=== PATIENT | female | born 1955 | race Two or more races ===

== ENCOUNTER → 2018-12-12 | Outpatient (REF) | payer OTHER ==
[~2018-12-12] MED LIST: DIOVAN160 MG PO; FISH OIL1000 M1 OR; LOSARTAN POT50 MG PO; LOSARTAN POTAS100 MG OR; METO25TAB PO; METOPROL TAR25 MG PO; MULTI VIT OR; NORVASC10 M1 OR; NORVASC10 M1 PO; SIMVASTATIN40 MG PO; TOPROL XL25 M1 PO; ZOCOR20 MG PO
[2018-12-12 10:49] LABS: HEMATOCRIT 40.9 % (37.0-47.0); HEMOGLOBIN 13.1 g/dl (12.0-16.0); IMMATURE GRANULOCYTES 0.3 % (0.0-5.0); MEAN CELL VOLUME 86.5 fL CALC (80.0-100.0); MEAN CORPUSCULAR HGB 27.7 pG CALC (26.0-32.0); NEUT# 3.19 thou/uL (2.00-7.15); RED BLOOD COUNT 4.73 mill/uL (4.20-5.60); RED CELL DISTRI WIDTH 14.1 % (11.5-15.5)
[2018-12-12 10:57] LABS: ALBUMIN 4.7 g/dL (3.2-5.0); ALKALINE PHOSPHATASE 75 u/l (38-126); ANION GAP 14 (6-22 (CALC)); BILIRUBIN, TOTAL 0.5 mg/dL (0.0-1.4); BUN 12 mg/dL (8-23); BUN/CREATININE RATIO 19 (12-20 (CALC)); CALCULATED LDLCHOLESTEROL 41 mg/dL (62-129 (CALC)); CARBON DIOXIDE 29 mmol/l (22-30); CHLORIDE 105 mmol/l (95-108); CHOLESTEROL HDL RATIO 2.7 (<4.4 (CALC)); CREATININE 0.6 mg/dL (0.5-1.0); GFR > 60 ML/MIN (>=60 (CALC)); GFR FOR AFR.AMER. > 60 ML/MIN (>=60 (CALC)); HDL CHOLESTEROL 44 mg/dL (>=40); POTASSIUM 4.7 mmol/l (3.5-5.1); SGOT/AST 37 u/l (9-36); SODIUM 143 mmol/l (137-146); TOTAL CHOLESTEROL 119 mg/dl (0-199); TOTAL PROTEIN 7.6 g/dL (6.3-8.2); TOTAL TRIGLYCERIDES 168 mg/dl (30-149); VLDL CHOLESTROL 34 mg/dl (1-41 (CALC))
[2018-12-12 11:24] LABS: TSH, 3RD GENERATION 5.63 uIU/mL (0.47 - 4.68)
== END | disposition home or self-care (01) | DRG 951 ==
LOC: LAB 09:05
PROVIDERS: ATTEND Family Medicine
DX: Z00.00 Encounter for general adult medical examination without abnormal findings (principal)

== ENCOUNTER → 2019-01-10 | Outpatient (REF) ==
[2019-01-10 11:04] LABS: CHOLESTEROL HDL RATIO 2.8 (<4.4 (CALC))
== END | disposition home or self-care (01) | DRG 951 ==
LOC: LAB 09:30
PROVIDERS: ATTEND Family Medicine
DX: Z02.6 Encounter for examination for insurance purposes (principal)